=== PATIENT | male | born 2005 | race Two or more races ===

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

== ENCOUNTER 2024-02-09 09:32 | Emergency (ER) | payer SELFPAY ==
[2024-02-09 09:34] VITALS: BP 142/79; PULSE 92; RESP 16; TEMP 36.8; O2SAT 98; BMI 32.9
--- NOTE | 2024-02-09 10:11 | ED_ITS ---
HPI - Male Genitourinary General Chief complaint: Urogenital-Male Stated complaint: Needs to Get Checked Out Below Time Seen by Provider: 02/09/24 09:38 Source: patient Mode of arrival: ambulatory Limitations: no limitations History of Present Illness ED Provider: Татьяна Richmond APRN HPI Narrative: 18-year-old male with no known medical history presents the ER seeking STD testing. Patient reports that he has a new female sexual partner. They were having intercourse last night when he is concerned that the condom may have, after intercourse. He has no physical symptoms. He is here for STD testing. Related Data Allergies Allergy/AdvReac Type Severity Reaction Status Date / Time No Known Allergies Allergy Verified 02/09/24 09:36 Review of Systems Review of Systems: Yes all other systems are reviewed and are negative Constitutional: Constitutional: Reports no additional constitutional complaints, Denies body ache(s), Denies chills, Denies fever(s), Denies headache(s) and Denies weakness Eyes: Eyes: Reports no additional eye complaints and Denies change in vision ENT: Reports system reviewed and no additional complaints, except as documented, Denies dizziness, Denies headache(s), Denies nasal congestion, Denies nasal discharge and Denies neck pain Cardiovascular: Cardiovascular: Reports no additional cardiovascular complaints, Denies chest pain, Denies leg edema and Denies dyspnea Respiratory: Respiratory: Reports no additional respiratory complaints, Denies cough and Denies dyspnea Gastrointestinal: Gastrointestinal: Reports no additional gastrointestinal complaints, Denies abdominal pain, Denies diarrhea, Denies nausea and Denies vomiting Genitourinary: Genitourinary: Denies penile discharge, Denies testicular mass, Denies testicular pain, Denies urinary frequency, Denies urinary hesitancy, Denies urinary incontinence and Denies urinary urgency Musculoskeletal: Musculoskeletal: Reports no additional musculoskeletal complaints, Denies back pain, Denies arthralgias, Denies joint swelling, Denies neck pain, Denies numbness and Denies tingling Integumentary/Breasts: Skin/Breast: Reports system reviewed and no additional complaints, except as docu and Denies rash Neurologic: Reports system reviewed and no additional complaints, except as documented, Denies Abnormal speech present, Denies dizziness, Denies headache(s), Denies numbness, Denies tingling and Denies weakness PMFSH Social History Social History Alcohol intake: never Advance Directives: No Advance Directives Information Provided: No Physical Exam Vital Signs: Vital Signs: Last Vital Signs Temp 98.2 F 02/09/24 09:34 Pulse 92 02/09/24 09:34 Resp 16 02/09/24 09:34 BP 142/79 H 02/09/24 09:34 Pulse Ox 98 02/09/24 09:34 O2 Del Method Room Air 02/09/24 09:34 BMI result Body Mass Index 32.9 Const: General: cooperative, healthy appearing, comfortable and no acute distress Orientation/consciousness: patient oriented x3 Limitations: no limitations HEENT: Head: Yes normal to inspection Ears: hearing grossly normal bilaterally General nose exam: Normal external nose present Face and sinus: Yes normal facial exam Mouth: Normal oral and palatal mucosa present Throat: Yes posterior oropharynx normal Eyes: General: appearance normal, both eyes and all related structures Pupils: Equal, round and reactive pupils present Neck: Neck: Yes normal visual inspection Chest: Chest palpation & inspection: normal inspection of the chest Resp: Effort & Inspection: normal respiratory effort Auscultation: clear to auscultation bilaterally Cardio: Rate: regular rate Rhythm: regular rhythm Peripheral pulses: Peripheral pulses 2+ throughout GI: Inspection: Yes normal to inspection Palpation (GI): Soft to palpation and nontender Auscultation: normal bowel sounds : Other: Deferred exam Back/Spine/Pelvis: Thoracic/Lumbar Spine: thoracic and lumbar spine normal to inspection Skin: General skin exam: no rashes or lesions noted Neuro: General: patient oriented x3, no focal motor deficits and normal sensation to monofilament Cranial nerves: Yes Equal, round and reactive pupils present Cognition (Neuro): normal cognition Speech: No Abnormal speech present Gait exam (Neuro): Normal gait present Motor exam (neuro): 5/5 motor strength present throughout Extrem: General: Yes normal to inspection Medical Decision Making Medical Decision Making MDM Narrative: 18-year-old male with no known medical history presents the ER seeking STD testing. Patient reports that he has a new female sexual partner. They were having intercourse last night when he is concerned that the condom may have, after intercourse. He has no physical symptoms. He is here for STD testing. The patient deferred the exam. His vitals are stable Will send UA, testing for gonorrhea and chlamydia. Patient is asymptomatic and at this time I believe that he can wait for his results. He tells me he is able to return tomorrow if his results are positive for treatment. I do recommend that he get retested in 7 days at [facility] if he has additional concerns. I reviewed worrisome signs and symptoms with him and when to return to the emergency room. Differential Diagnosis Differential Diagnoses: The differential diagnosis associated with the presentation includes STI No testicular pain to suggest epididymitis or testicular torsion Admission/Observation Consideration of admission/observation: Escalation of care including admission/observation considered No testicular pain to suggest epididymitis or testicular torsion requiring advanced imaging, inpatient hospitalization Tests considered The following testing was considered but not selected: No testicular pain to suggest epididymitis or testicular torsion requiring advanced imaging Prescription Management I considered prescription management with: Antibiotic Discharge Plan Discharge Clinical Impression: Normal exam Patient Disposition: Home, Self-Care Instructions: Normal Exam (ED) Additional Instructions: We did send testing for STDs. Will call you if your positive for any STDs and then you will need to return for treatment. Because you recently had sexual intercourse that may have been unprotected if you are initial results are negative I do recommend that you get retested in 7 days at [facility]. Print Language: [place]
[2024-02-09 10:20] VITALS: BP 142/79; PULSE 92; RESP 16; TEMP 36.8; O2SAT 98
[2024-02-09 10:38] LABS: Appearance Urine Clear; Color Urine Yellow; Glucose Urine UA Negative (Negative); Leukocyte Esterase Urine Negative (Negative); Nitrite Urine Negative (Negative); PH 5.5 (5.0-9.0); Urine Blood Negative (Negative); Urine Ketones Negative (Negative); Urine Protein Negative (Neg-Trace)
[2024-02-09 12:44] LABS: CT PCR NOT DETECTED (Not Detect.); NG PCR NOT DETECTED (Not Detect.)
== END 2024-02-09 10:21 | disposition home or self-care (01) ==
PROVIDERS: Emergency Provider Emergency Medicine; PCP Pediatrics
DX: Z20.2 Contact with and (suspected) exposure to infections with a predominantly sexual mode of transmission (principal)
CPT/HCPCS: 81003; 87491; 87591; 99282; 99283

== ENCOUNTER 2024-03-04 17:19 | Emergency (ER) | payer OTHER, SELFPAY ==
[2024-03-04] VITALS (7 sets, daily range): BP systolic 149–190; BP diastolic 91–109; PULSE 136–154; RESP 12–26; TEMP -17.7–0; O2SAT 92–100; BMI 28.1
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
[2024-03-04 17:46] LABS: MANUAL DIFF FLAG NO
[2024-03-04 17:59] LABS: Basophils Absolute Auto 0.1 X10*3/uL (0.0-0.2); Basophils Percent Auto 0.7 % (0-2); Eosinophils Absolute Auto 0.1 X10*3/uL (0.0-0.4); Eosinophils Percent Auto 0.8 % (0-4); Hematocrit 48.2 % (42.0-52.0); Hemoglobin 16.5 g/dl (14.0-18.0); Imm Gran Abs Auto 0.02 X10*3/uL (0.00-0.03); Imm Gran Pct Auto 0.3 % (0.0-0.4); Lymphocytes Absolute Auto 2.3 X10*3/uL (1.2-4.9); Lymphocytes Percent Auto 31.1 % (20-40); Mean Corpuscular HGB Conc 34.2 g/dl (31.0-36.0); Mean Corpuscular Volume 90.6 fL (80.0-98.0); Mean Platelet Volume 10.3 fL (9.4-12.4); Monocytes Absolute Auto 0.5 X10*3/uL (0.1-1.2); Monocytes Percent Auto 6.9 % (2-11); Neutrophils Absolute Auto 4.5 x10*3/uL (2.0-8.3); Neutrophils Percent Auto 60.2 % (45-73); Platelet Count 354 X10*3/uL (160-400); Red Blood Count 5.32 X10*6/uL (4.60-5.80); Red Cell Distribution Width 12.1 % (11.0-16.0); White Blood Count 7.5 X10*3/uL (4.8-10.8)
[2024-03-04 18:10] LABS: Alanine Aminotransferase 42 U/L (0-40); Albumin Level 4.8 g/dL (3.5-5.0); Alkaline Phosphatase 77 U/L (39-117); Anion Gap 19 (12-20); Aspartate Amino Transferase 50 U/L (5-37); Bilirubin Total 0.4 mg/dL (0.0-1.0); Blood Urea Nitrogen 8 mg/dL (9-16); Calcium 9.7 mg/dL (8.4-10.2); Carbon Dioxide 16 mmol/L (22-29); Chloride 109 mmol/L (96-108); Estimated Glomerular Filt Rate > 60; Glucose Random 117 mg/dL (60-115); Potassium 5.6 mmol/L (3.3-5.1); Sodium 138 mmol/L (135-145); Total Protein 9.1 g/dL (6.5-8.0)
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
[2024-03-04] MEDS: Ketamine HCl/NS 50 MG/5 ML SYRINGE IVPUSH (18:45)
[2024-03-04] MEDS: 0.9 % Sodium Chloride 1,000 ML 999 ML IVCONT ×3 (18:47)
== END 2024-03-04 19:42 | disposition short-term general hospital (02) ==
PROVIDERS: Emergency Provider Emergency Medicine
DX: S21.312A Laceration without foreign body of left front wall of thorax with penetration into thoracic cavity, initial encounter (principal); X99.1XXA Assault by knife, initial encounter; R00.0 Tachycardia, unspecified; Y93.9 Activity, unspecified; Y92.9 Unspecified place or not applicable; Y99.9 Unspecified external cause status
CPT/HCPCS: 32556; 36415; 36430; 51798; 71045; 80053; 85025; 86850; 86900; 86901; 86920; 96374; 99285; 99291; P9016

== ENCOUNTER 2025-07-10 21:51 | Emergency (ER) | payer OTHER, SELFPAY ==
[2025-07-10 22:00] VITALS: BP 160/98; PULSE 85; RESP 18; TEMP 36.6; O2SAT 100; BMI 27.6
--- OUTSIDE RECORDS SUMMARY | 2025-07-11 00:17 | XMS_ITS | Encounter Summary ---
Author Organization [facility] Address [address] [place], [place] [id number] Phone Care Team Providers Care Lpn Rn Name Role Phone Anabelle Stevens MD Primary Care Provider Reason for Visit * Reason Onset Date Comments Follow uo Asthma 07/11/2019 Encounter Details Date Type Department Care Team ([facility] Contact Info) Description 07/11/2019 Patient Outreach [facility] [place] [address] [place] [address] Anabelle Stevens MD 150 [place] [address] Follow uo Asthma Social History Tobacco Use Types Packs/Day Years Used Date Smoking Tobacco: Never Smokeless Tobacco: Never Alcohol Use Standard Drinks/Week Comments No 0 (1 standard drink = 0.6 oz pur e alcohol) Hunger/Food Answer Date Recorded No 01/14/2019 Stable Housing Answer Date Recorded 0 01/14/2019 Transportation Concerns Answer Date Rec orded No 01/14/2019 Hazards in Home Answer Date Recorded No 01/14/2019 Financing Utilities Answer Date Recorde d No 01/14/2019 Safety at Home Answer Date Recorded No 01/14/2019 Outside Support Answer Date Recorded No 01/14/2019 Understanding Health Concerns Answer Da te Recorded No 01/14/2019 Financing Health Concerns Answer Date R ecorded No 01/14/2019 Missing School or Work Answer Date Brooks rded No 01/14/2019 Sex and Gender Information Value Date Recorded Sex Assigned at Male 02/13/2024 9:47 AM EDT Legal Sex Male 5:15 PM EDT Gender Identity Male 05/31/2023 11:03 AM EST Sexual Orientation Straight 08/17/2022 2: 10 PM EST documented as of this encounter Plan of Treatment Not on file documented as of this encounter Visit Diagnoses Not on filedocumented in this encounter Care Teams Lpn Rn Relationship Specialty Start Date End Date Anabelle Stevens MD [address] [place] [address] [place] [address] PCP - General 03/02/17 10/21/24 documented as of this encounter
--- OUTSIDE RECORDS SUMMARY | 2025-07-11 00:17 | XMS_ITS | Encounter Summary ---
Author Organization [facility] Address [address] [place], [place] [phone] Phone Care Team Providers Care Transportation Maintenance Operator Name Role Phone Anabelle Stevens MD Primary Care Provider Reason for Visit * Reason Onset Date Comments Met at appointment 05/29/2019 Encounter Details Date Type Department Care Team ([facility] st Contact Info) Description 05/29/2019 Patient Outreach [facility] [place] [address] [place] [address] Anabelle Stevens MD 150 [place] [address] Met at appointment Social History Tobacco Use Types Packs/Day Years [...] PM EST documented as of this encounter Progress Notes * Anabelle Stevens MD - 05/29/2019 7:46 AM EST Thank you. PPP documented in this encounter Plan of Treatment Not on file documented as of this encounter Visit Diagnoses Not on filedocumented in this encounter Care Teams Transportation Maintenance Operator Relationship Specialty Start Date End Date Anabelle Stevens MD [address] [place] [address] [place] [address] PCP - General 03/02/17 10/21/24 documented as of this encounter
--- OUTSIDE RECORDS SUMMARY | 2025-07-11 00:17 | XMS_ITS | Encounter Summary ---
Author Organization [facility] Address [address] [place], [place] [phone] Phone Care Team Providers Care Coat Fitter Name Role Phone Anabelle Stevens MD Primary Care Provider Reason for Visit * Reason Onset Date Comments Question re RX 04/18/2019 Encounter Details Date Type Department Care Team ([facility] st Contact Info) Description 04/18/2019 Patient Outreach [facility] [place] [address] [place] [address] Anabelle Stevens MD 150 [place] [address] Question re RX Social History Tobacco Use Types Packs/Day Years [...] Progress Notes * Anabelle Stevens MD - 04/18/2019 12:44 PM EDT Thanks for following up on this patient, Naz. Please call if you want to talk more about the family. PPP documented in this encounter Plan of Treatment Not on file documented as of this encounter Visit Diagnoses Not on filedocumented in this encounter Care Teams Coat Fitter Relationship Specialty Start Date End Date Anabelle Stevens MD [address] [place] [address] [place] [address] PCP - General 03/02/17 10/21/24 documented as of this encounter
--- OUTSIDE RECORDS SUMMARY | 2025-07-11 00:17 | XMS_ITS | Encounter Summary ---
Author Organization [facility] Address [address] [place], [place] [phone] Phone Care Team Providers Care C Application Developer Name Role Phone Anabelle Stevens MD Primary Care Provider Reason for Visit * Reason Onset Date Comments Home Asthma Visit 04/18/2019 Encounter Details Date Type Department Care Team ([facility] st Contact Info) Description 04/18/2019 Patient Outreach [facility] [place] [address] [place] [address] Anabelle Stevens MD 150 [place] [address] Home Asthma Visit Social History Tobacco Use Types Packs/Day Years [...] on filedocumented in this encounter Care Teams C Application Developer Relationship Specialty Start Date End Date Anabelle Stevens MD 150 [facility] [place] [address] PCP - General 03/02/17 10/21/24 documented as of this encounter
--- OUTSIDE RECORDS SUMMARY | 2025-07-11 00:17 | XMS_ITS | Encounter Summary ---
Author Organization [facility] Address [address] [place], [place] [phone] Phone Care Team Providers Care Pet House Sitter Name Role Phone Anabelle Stevens MD Primary Care Provider Reason for Visit * Reason Onset Date Comments Follow up Asthma 07/29/2019 Encounter Details Date Type Department Care Team ([facility] st Contact Info) Description 07/29/2019 Patient Outreach [facility] [place] [address] [place] [address] Anabelle Stevens MD 150 [place] [address] Follow up Asthma Social History Tobacco Use Types Packs/Day Years Used Date Smoking Tobacco: Never Smokeless Tobacco: Never Alcohol Use Standard Drinks/Week Comments No 0 (1 standard drink = 0.6 oz pur e alcohol) Hunger/Food Answer Date Recorded No 01/14/2019 Stable Housing Answer Date Recorded No 07/24/2019 Transportation Concerns Answer Date Rec orded No [...] Progress Notes * Anabelle Stevens MD - 07/29/2019 10:54 AM EST Thanks. Yes, they may need another visit with more education. I appreciate it! PPP documented in this encounter Plan of Treatment Not on file documented as of this encounter Visit Diagnoses Not on filedocumented in this encounter Care Teams Pet House Sitter Relationship Specialty Start Date End Date Anabelle Stevens MD 150 [facility] [place] [address] PCP - General 03/02/17 10/21/24 documented as of this encounter
--- OUTSIDE RECORDS SUMMARY | 2025-07-11 00:17 | XMS_ITS | Encounter Summary ---
Author Organization [facility] Address [address] [place], [place] [phone] Phone Care Team Providers Care Cook Fast Food Name Role Phone Anabelle Stevens MD Primary Care Provider Reason for Visit * Reason Onset Date Comments Follow up Asthma 08/04/2019 Encounter Details Date Type Department Care Team ([facility] st Contact Info) Description 08/04/2019 Patient Outreach [facility] [place] [address] [place] [address] Anabelle Stevens MD 150 [place] [address] Follow up Asthma Social History Tobacco Use [...] on filedocumented in this encounter Care Teams Cook Fast Food Relationship Specialty Start Date End Date Anabelle Stevens MD 150 [facility] [place] [address] PCP - General 03/02/17 10/21/24 documented as of this encounter
--- OUTSIDE RECORDS SUMMARY | 2025-07-11 00:17 | XMS_ITS | Encounter Summary ---
Author Organization [facility] Address [address] [place], [place] [phone] Phone Care Team Providers Care Brush Holder Inspector Name Role Phone Anabelle Stevens MD Primary Care Provider Reason for Visit * Reason Onset Date Comments Remind Mom of pt's appointment 05/28/2019 Encounter Details Date Type Department Care Team ([facility] Contact Info) Description 05/28/2019 Patient Outreach [place] [facility] [place] [address] [place] [address] Anabelle Stevens MD 150 [place] [address] Remind Mom of pt's appointment Social History Tobacco Use Types Packs/Day [...] Progress Notes * Anabelle Stevens MD - 05/28/2019 6:54 AM EST Thank you.. PPP documented in this encounter Plan of Treatment Not on file documented as of this encounter Visit Diagnoses Not on filedocumented in this encounter Care Teams Brush Holder Inspector Relationship Specialty Start Date End Date Anabelle Stevens MD [address] [place] [address] [place] [address] PCP - General 03/02/17 10/21/24 documented as of this encounter
--- OUTSIDE RECORDS SUMMARY | 2025-07-11 00:17 | XMS_ITS | Encounter Summary ---
Author Organization [facility] Address [address] [place], [place] [phone] Phone Care Team Providers Care Automotive Porter Name Role Phone Anabelle Stevens MD Primary Care Provider Reason for Visit * Reason Onset Date Comments Checking on meds 04/22/2019 Encounter Details Date Type Department Care Team ([facility] Contact Info) Description 04/22/2019 Patient Outreach [facility] [place] [address] [place] [address] Anabelle Stevens MD [address] [place] [address] Checking on meds Social History Tobacco Use Types Packs/Day Years [...] Progress Notes * Anabelle Stevens MD - 04/22/2019 9:00 AM EDT Thanks Naz! documented in this encounter Plan of Treatment Not on file documented as of this encounter Visit Diagnoses Not on filedocumented in this encounter Care Teams Automotive Porter Relationship Specialty Start Date End Date Anabelle Stevens MD [address] [place] [address] [place] [address] PCP - General 03/02/17 10/21/24 documented as of this encounter
--- OUTSIDE RECORDS SUMMARY | 2025-07-11 00:17 | XMS_ITS | Encounter Summary ---
Author Organization [facility] Address [address] [place], [place] [phone] Phone Care Team Providers Care Education Diagnostician Name Role Phone Anabelle Stevens MD Primary Care Provider Reason for Visit * Reason Onset Date Comments Follow up asthma 04/24/2019 Encounter Details Date Type Department Care Team ([facility] st Contact Info) Description 04/24/2019 Patient Outreach [facility] [place] [address] [place] [address] Anabelle Stevens MD [address] [place] [address] Follow up asthma Social History Tobacco Use Types Packs/Day Years [...] Progress Notes * Anabelle Stevens MD - 04/24/2019 11:11 AM EDT Noted. PPP documented in this encounter Plan of Treatment Not on file documented as of this encounter Visit Diagnoses Not on filedocumented in this encounter Care Teams Education Diagnostician Relationship Specialty Start Date End Date Anabelle Stevens MD [address] [place] [address] [place] [address] PCP - General 03/02/17 10/21/24 documented as of this encounter
--- OUTSIDE RECORDS SUMMARY | 2025-07-11 00:17 | XMS_ITS | Encounter Summary ---
Author Organization [facility] Address [address] [place] [phone] Phone Care Team Providers Care Geodetic Engineer Name Role Phone Anabelle Stevens MD Primary Care Provider Encounter Details Date Type Department Care Team (Late st Contact Info) Description 03/08/2017 Conversion Encounter [facility] [place] [address] [place] [address] Social History Tobacco Use Types Packs/Day Years Used Date Smoking Tobacco: Never Assessed Sex and Gender Information Value Date Recorded Sex Assigned at Male 02/13/2024 9:47 AM EDT Legal Sex Male 5:15 PM EDT Gender Identity Male 05/31/2023 11:03 AM EST Sexual Orientation Straight 08/17/2022 2: 10 PM EST documented as of this encounter Plan of Treatment Not on file documented as of this encounter Visit Diagnoses Not on filedocumented in this encounter Care Teams Geodetic Engineer Relationship Specialty Start Date End Date Anabelle Stevens MD [address] [place] [address] PCP - General 03/02/17 10/21/24 documented as of this encounter
--- OUTSIDE RECORDS SUMMARY | 2025-07-11 00:17 | XMS_ITS | Encounter Summary ---
Author Organization [facility] Address [address] [place] [phone] Phone Care Team Providers Care Park Maintainer Name Role Phone Anabelle Stevens MD Primary Care Provider [phone] Encounter Details Date Type Department Care Team (Late st Contact Info) Description 09/11/2012 Documentation EM Family [facility] [address] [place] [address] Family Medicine, Physician [address] [place], [place] [phone] Social History Tobacco Use Types Packs/Day Years [...] on filedocumented in this encounter Care Teams Park Maintainer Relationship Specialty Start Date End Date Anabelle Stevens MD [address] [place] [address] [place] [address] PCP - General 03/02/17 10/21/24 documented as of this encounter
--- OUTSIDE RECORDS SUMMARY | 2025-07-11 00:18 | XMS_ITS | Encounter Summary ---
Author Organization [facility] Address [address] [place], [place] [id number] Phone Care Team Providers Care Senior Maintenance Technician Name Role Phone Anabelle Stevens MD Primary Care Provider Reason for Visit * Reason Onset Date Comments Reschedule asthma visit 01/27/2019 Encounter Details Date Type Department Care Team ([facility] st Contact Info) Description 01/27/2019 Patient Outreach [facility] [place] [address] [place] [address] Anabelle Stevens MD 150 [place] [address] Reschedule asthma visit Social History Tobacco Use Types Packs/Day Years [...] Progress Notes * Anabelle Stevens MD - 01/27/2019 2:58 PM EDT Noted. PPP documented in this encounter Plan of Treatment Not on file documented as of this encounter Visit Diagnoses Not on filedocumented in this encounter Care Teams Senior Maintenance Technician Relationship Specialty Start Date End Date Anabelle Stevens MD [address] [place] [address] [place]on [address] PCP - General 03/02/17 10/21/24 documented as of this encounter
--- OUTSIDE RECORDS SUMMARY | 2025-07-11 00:18 | XMS_ITS | Encounter Summary ---
Author Organization [facility] Address [address] [place], [place] [phone] Phone Care Team Providers Care Thimble Press Operator Name Role Phone Anabelle Stevens MD Primary Care Provider Reason for Visit * Reason Onset Date Comments asthma home visit 03/26/2019 Encounter Details Date Type Department Care Team ([facility] st Contact Info) Description 03/26/2019 Patient Outreach [facility] [place] [address] [place] [address] Anabelle Stevens MD 150 [place] [address] asthma home visit Social History Tobacco Use Types Packs/Day [...] on filedocumented in this encounter Care Teams Thimble Press Operator Relationship Specialty Start Date End Date Anabelle Stevens MD 150 [facility] [place] [address] PCP - General 03/02/17 10/21/24 documented as of this encounter
--- OUTSIDE RECORDS SUMMARY | 2025-07-11 00:18 | XMS_ITS | Encounter Summary ---
Author Organization [facility] Address [address] [place], [place] [phone] Phone Care Team Providers Care Python Engineer Name Role Phone Anabelle Stevens MD Primary Care Provider Reason for Visit * Reason Onset Date Comments Confirm Asthma home visit today 02/19/2019 Encounter Details Date Type Department Care Team ([facility] Contact Info) Description 02/19/2019 Patient Outreach [facility] [place] 150 [place] [address] Anabelle Stevens MD 150 [place] [address] Confirm Asthma home visit today Social History Tobacco Use Types Packs/Day Years [...] on filedocumented in this encounter Care Teams Python Engineer Relationship Specialty Start Date End Date Anabelle Stevens MD [address] [place] [address] [place] Huston [address] PCP - General 03/02/17 10/21/24 documented as of this encounter
--- OUTSIDE RECORDS SUMMARY | 2025-07-11 00:18 | XMS_ITS | Encounter Summary ---
Author Organization [facility] Address [address] [place] [address] Phone Care Team Providers Care Home Care Liaison Name Role Phone Anabelle Stevens MD Primary Care Provider [phone]- [phone] Reason for Visit * Reason Comments Med Change Request Encounter Details Date Type Department Care Team ([facility] st Contact Info) Description 06/05/2022 Refill [facility] [place] 150 [place] [address] Anabelle Stevens MD 150 [place] [address] Mild persistent asthma without complication Social History Tobacco Use Types Packs/Day Years Used Date Smoking Tobacco: Never Smokeless Tobacco: Never Alcohol Use Standard Drinks/Week Comments No 0 (1 standard drink = 0.6 oz pur e alcohol) Hunger/Food Answer Date Recorded In the last 12 months, did y ou or your family ever eat less than you felt you should because there wasn't enough money for food? No 02/14/2021 Stable Housing Answer Date Recorded Are you worried that in the next 2 months you may not have stable housing? No 02/14/2021 Transportation Concerns Answer Date Rec orded In the last 12 months, have you or your family ever had to go without healthcare because you didn't have a way to get there? No 02/14/2021 Hazards in Home Answer Date Recorded Think about the place you li ve. Do you have problems with any of the following? Pests (mice or roaches), mold, no/not working smoke detectors, water leaks, no window guards. No 2020 Financing Utilities Answer Date Recorde d In the last 12 months, has t he electric, gas, oil, or water company threatened to shut off your services in your home? No 02/14/2021 Safety at Home Answer Date Recorded Are you or your family worried about feeling saf e in your home? No 02/14/2021 Outside Support Answer Date Recorded Do you feel that you need mo re support from other people or programs to help you care for yourself or your family? No 02/14/2021 Understanding Health Concerns Answer Da te Recorded Do you need help understandi ng your or your child's healthcare needs (diagnosis, medications, plan, etc.)? No 02/14/2021 Financing Health Concerns Answer Date R ecorded In the last 12 months, was t here a time when your child needed to see a doctor or get medications or supplies but could not because of cost? No 02/14/2021 Missing School or Work Answer Date Brooks rded Did you or your child miss s chool or work because of a health problem that could have been avoided? No 02/14/2021 Sex and Gender Information Value Date Recorded Sex Assigned at Male 02/13/2024 9:47 AM EDT Legal Sex Male 5:15 PM EDT Gender Identity Male 05/31/2023 11:03 AM EST Sexual Orientation Straight 08/17/2022 2: 10 PM EST documented as of this encounter Miscellaneous Notes * Telephone Encounter - Twin Brice LPN - 06/05/2022 3:56 PM EST Correct script t'd up with KRISTA clicked. documented in this encounter Plan of Treatment Not on file documented as of this encounter Visit Diagnoses Diagnosis Mild persistent asthma without complication documented in this encounter Care Teams Home Care Liaison Relationship Specialty Start Date End Date Anabelle Stevens MD 150 [facility] [place] [address] PCP - General 03/02/17 10/21/24 documented as of this encounter
--- OUTSIDE RECORDS SUMMARY | 2025-07-11 00:18 | XMS_ITS | Encounter Summary ---
Author Organization [facility] Address [address] [place] [address] Phone Care Team Providers Care Fiction And Nonfiction Prose Writer Name Role Phone Anabelle Stevens MD Primary Care Provider [phone]- [phone] Reason for Visit * Reason Comments Med Refill Encounter Details Date Type Department Care Team (Late st Contact Info) Description 05/08/2018 Refill [facility] - [address] [address] Jordan Joseph MD Mild persistent asthma without complication Social History Tobacco Use Types Packs/Day Years Used Date Smoking Tobacco: Never Smokeless Tobacco: Never Alcohol Use Standard Drinks/Week Comments No 0 (1 standard drink = 0.6 oz pur e alcohol) Sex and Gender Information Value Date Recorded [...] complication documented in this encounter Care Teams Fiction And Nonfiction Prose Writer Relationship Specialty Start Date End Date Anabelle Stevens MD [address] [place] [address] PCP - General 03/02/17 10/21/24 documented as of this encounter
--- OUTSIDE RECORDS SUMMARY | 2025-07-11 00:18 | XMS_ITS | Encounter Summary ---
Author Organization [facility] Address [address] [place] [address] Phone Care Team Providers Care Ore Charger Name Role Phone Anabelle Stevens MD Primary Care Provider [phone]- [phone] Reason for Visit * Reason Comments Med Change Request Encounter Details Date Type Department Care Team ([facility] st Contact Info) Description 06/05/2022 Refill [facility] [place] 150 [place] [address] Anabelle Stevens MD 150 [place] [address] Mild persistent asthma without complication Social History [...] encounter Miscellaneous Notes * Telephone Encounter - Parisa Luis LPN - 06/05/2022 5:02 PM EST Pharm refill request for Flovent KRISTA documented in this encounter Plan of Treatment Not on file documented as of this encounter Visit Diagnoses Diagnosis Mild persistent asthma without complication documented in this encounter Care Teams Ore Charger Relationship Specialty Start Date End Date Anabelle Stevens MD 150 [facility] JOE[place] [address] PCP - General 03/02/17 10/21/24 documented as of this encounter
--- OUTSIDE RECORDS SUMMARY | 2025-07-11 00:18 | XMS_ITS | Encounter Summary ---
Author Organization [facility] Address [address] [place] [address] Phone Care Team Providers Care Clinical Trials Data Coordinator Name Role Phone Anabelle Stevens MD Primary Care Provider Encounter Details Date Type Department Care Team (Late st Contact Info) Description 05/17/2010 Documentation [facility] [address] [place] [address] Family Medicine, Physician [address] [place], [place] [phone] Social History Tobacco Use Types Packs/Day Years [...] on filedocumented in this encounter Care Teams Clinical Trials Data Coordinator Relationship Specialty Start Date End Date Anabelle Stevens MD [address] [place] [address] [place] [address] PCP - General 03/02/17 10/21/24 documented as of this encounter
--- OUTSIDE RECORDS SUMMARY | 2025-07-11 00:18 | XMS_ITS | Encounter Summary ---
Author Organization [facility] Address [address] [place], [place] [address] Phone Care Team Providers Care Industrial Pharmacist Name Role Phone Anabelle Stevens MD Primary Care Provider Reason for Visit * Reason Onset Date Comments Schedule home asthma visit 02/17/2019 Encounter Details Date Type Department Care Team ([facility] st Contact Info) Description 02/17/2019 Patient Outreach [facility] [place] 150 [place] [address] Anabelle Stevens MD 150 [place] [address] Schedule home asthma visit Social History Tobacco Use Types [...] Progress Notes * Anabelle Stevens MD - 02/17/2019 12:13 PM EDT Noted. Vasu Olson to talk to mom in office today. PPP documented in this encounter Plan of Treatment Not on file documented as of this encounter Visit Diagnoses Not on filedocumented in this encounter Care Teams Industrial Pharmacist Relationship Specialty Start Date End Date Anabelle Stevens MD 150 [facility] [place] [address] PCP - General 03/02/17 10/21/24 documented as of this encounter
--- OUTSIDE RECORDS SUMMARY | 2025-07-11 00:18 | XMS_ITS | Encounter Summary ---
Author Organization [facility] Address [address] [place] [address] Phone Care Team Providers Care Nurse Practitioner Physician Assistant Name Role Phone Anabelle Stevens MD Primary Care Provider Encounter Details Date Type Department Care Team (Late st Contact Info) Description 11/07/2010 Documentation [facility] [address] [place] [address] Family Medicine, Physician [address] [place], [place] [phone] Social History Tobacco Use Types Packs/Day Years [...] on filedocumented in this encounter Care Teams Nurse Practitioner Physician Assistant Relationship Specialty Start Date End Date Anabelle Stevens MD [address] [place] [address] [place] [address] PCP - General 03/02/17 10/21/24 documented as of this encounter
--- OUTSIDE RECORDS SUMMARY | 2025-07-11 00:18 | XMS_ITS | Encounter Summary ---
Author Organization [facility] Address [address] [place], [place] [phone] Phone Care Team Providers Care Concrete Inspector Name Role Phone Anabelle Stevens MD Primary Care Provider Reason for Visit * Reason Onset Date Comments Confirm home asthma visit 01/21/2019 Encounter Details Date Type Department Care Team ([facility] st Contact Info) Description 01/21/2019 Patient Outreach [facility] [place] 150 [place] [address] Anabelle Stevens MD 150 [place] [address] Confirm home asthma visit Social History Tobacco Use [...] Progress Notes * Anabelle Stevens MD - 01/21/2019 11:59 PM EDT Noted. Thanks. PPP documented in this encounter Plan of Treatment Not on file documented as of this encounter Visit Diagnoses Not on filedocumented in this encounter Care Teams Concrete Inspector Relationship Specialty Start Date End Date Anabelle Stevens MD [address] [place] [address] [place]ust[place] [address] PCP - General 03/02/17 10/21/24 documented as of this encounter
--- OUTSIDE RECORDS SUMMARY | 2025-07-11 00:18 | XMS_ITS | Encounter Summary ---
Author Organization [facility] Address [address] [place], [place] [phone] Phone Care Team Providers Care Vending Route Driver Name Role Phone Anabelle Stevens MD Primary Care Provider Reason for Visit * Reason Onset Date Comments Schedule home asthma visit 02/04/2019 Encounter Details Date Type Department Care Team ([facility] st Contact Info) Description 02/04/2019 Patient Outreach [facility] [place] 150 [place] [address] Anabelle Stevens MD 150 [place] [address] Schedule home asthma visit Social History Tobacco [...] on filedocumented in this encounter Care Teams Vending Route Driver Relationship Specialty Start Date End Date Anabelle Stevens MD [address] [place] [address] [place] [address] PCP - General 03/02/17 10/21/24 documented as of this encounter
--- OUTSIDE RECORDS SUMMARY | 2025-07-11 00:18 | XMS_ITS | Encounter Summary ---
Author Organization [facility] Address [address] [place] [address] Phone Care Team Providers Care Southeast Regional Sales Manager Name Role Phone Anabelle Stevens MD Primary Care Provider Encounter Details Date Type Department Care Team (Late st Contact Info) Description 05/23/2012 Documentation [facility] [address] [place] [address] Family Medicine, Physician [address] [place], [place] [phone] Social History Tobacco Use Types Packs/Day Years [...] on filedocumented in this encounter Care Teams Southeast Regional Sales Manager Relationship Specialty Start Date End Date Anabelle Stevens MD [address] [place] [address] [place] [address] PCP - General 03/02/17 10/21/24 documented as of this encounter
--- OUTSIDE RECORDS SUMMARY | 2025-07-11 00:18 | XMS_ITS | Encounter Summary ---
Author Organization [facility] Address [address] [place], [place] [phone] Phone Care Team Providers Care Manager Law Name Role Phone Anabelle Stevens MD Primary Care Provider Reason for Visit * Reason Onset Date Comments Confirm home asthma visit 02/11/2019 Encounter Details Date Type Department Care Team ([facility] Contact Info) Description 02/11/2019 Patient Outreach [facility] [place] 150 [place] [address] Anabelle Stevens MD 150 [place] [address] Confirm home asthma visit Social History Tobacco [...] Progress Notes * Anabelle Stevens MD - 02/11/2019 11:59 PM EDT Thanks, Naz. PPP documented in this encounter Plan of Treatment Not on file documented as of this encounter Visit Diagnoses Not on filedocumented in this encounter Care Teams Manager Law Relationship Specialty Start Date End Date Anabelle Stevens MD [address] [place] [address] [place] [address] PCP - General 03/02/17 10/21/24 documented as of this encounter
--- OUTSIDE RECORDS SUMMARY | 2025-07-11 00:18 | XMS_ITS | Encounter Summary ---
Author Organization [facility] Address [address] [place], [place] [phone] Phone Care Team Providers Care Medical Social Consultant Name Role Phone Anabelle Stevens MD Primary Care Provider Reason for Visit * Reason Onset Date Comments Home Asthma Visit 02/19/2019 Encounter Details Date Type Department Care Team ([facility] st Contact Info) Description 02/19/2019 Patient Outreach [facility] [place] 150 [place] [address] Anabelle Stevens MD 150 [place] [address] Home Asthma Visit Social History Tobacco Use [...] Progress Notes * Anabelle Stevens MD - 02/19/2019 11:59 PM EDT Thanks, Naz! PPP documented in this encounter Plan of Treatment Not on file documented as of this encounter Visit Diagnoses Not on filedocumented in this encounter Care Teams Medical Social Consultant Relationship Specialty Start Date End Date Anabelle Stevens MD [address] [place] [address] [place] Hust[place] [address] PCP - General 03/02/17 10/21/24 documented as of this encounter
--- OUTSIDE RECORDS SUMMARY | 2025-07-11 00:18 | XMS_ITS | Encounter Summary ---
Author Organization [facility] Address [address] [place] [address] Phone Care Team Providers Care Military Administrative Technician Name Role Phone Anabelle Stevens MD Primary Care Provider Encounter Details Date Type Department Care Team (Late st Contact Info) Description 06/02/2010 Documentation [facility] [address] [place] [address] Family Medicine, Physician [address] [place], [place] [phone] Social History Tobacco Use Types Packs/Day Years [...] on filedocumented in this encounter Care Teams Military Administrative Technician Relationship Specialty Start Date End Date Anabelle Stevens MD [address] [place] [address] [place] [address] PCP - General 03/02/17 10/21/24 documented as of this encounter
--- OUTSIDE RECORDS SUMMARY | 2025-07-11 00:18 | XMS_ITS | Clinical Summary ---
Author Organization [facility] Address [address] [place] [phone] Phone Care Team Providers Care Risk Mgr Name Role Phone Unavailable Primary Care Provider Unavailabl e Allergies Active Allergy Reactions Criticality Noted Date Comments Bee Venom 06/16/2024 Medications ibuprofen 200 MG capsuleIndicatio ns:Muscle strain of chest wall, initial encounter Take 2 capsules (400 mg total) by mouth every 6 (six) hours as needed for pain or fever (For fever or pain). 100 capsule 7 Active Spacer/Aero-Hold ing Chambers (OptiChamber Bev) miscIndications: Mild persistent asthma without complication Use with MDI as instructed 1 each 1 3 Active Spacer/Aero-Hold ing Chambers (OptiChamber Bev) miscIndications: Mild intermittent asthma with acute exacerbation Use with MDI as instructed 1 each 1 3 Active hydrOXYzine 25 MG tabletIndication s:Atopic dermatitis, unspecified type Take 1-2 tabs at night for itching 30 tablet 1 4 Active Additional Information Patient not taking.Reported on 07/24/2024 triamcinolone 0.1 % creamIndications :Atopic dermatitis, unspecified type Apply topically 2 (two) times a day as needed for rash. Mix entire tube with 16 ounce container of Cerave Cream 80 g 1 4 Active Additional Information Patient not taking.Reported on 07/24/2024 fluticasone 50 MCG/ACT nasal sprayIndications :Nasal congestion Administer 1 spray into each nostril daily. 1 mL 5 4 Active Spacer/Aero-Hold Chamber Mask miscIndications: Mild persistent asthma with (acute) exacerbation Use as directed 1 each 4 Active Mometasone Furoate (Asmanex HFA) 100 MCG/ACT aerosolIndicatio ns:Mild persistent asthma, unspecified whether complicated Inhale 2 puffs 2 (two) times a day. 13 g 5 5 Active albuterol HFA 108 (90 Base) MCG/ACT inhalerIndicatio ns:Mild persistent asthma with (acute) exacerbation Inhale 2 puffs every 4 (four) hours as needed for wheezing or shortness of breath. 1 Units 5 08/19/19 26 Active Active Problems Problem Noted Date Diagnosed Date Mild intermittent asthma without complication Overview (01/26/2020): QVAR 2 puffs BID - compliance seems to have improved - encouraged to continue Assessment & Plan (02/13/2024 9:46 AM EDT): Inhaler just refilled yesterday. Assessment & Plan (04/15/2019 6:54 PM EDT): Suspect poor compliance. School nurse is reporting frequent albuterol use for gym every day.. No cough at night. + cough with running. Takes qvar BID, 2 puffs. Denies allergy symptoms. Last fill for Qvar was 01/14/19 Sent new Rx for Qvar and albuterol today. I asked mom to bring in BOTH pumps to 1 month follow up to assess for compliance.. Resolved Problems Problem Noted Date Diagnosed Date Resolved Date Counseling and coordination of care 04/16/2019 12/14/2022 Encounters Date Type Department Care Team Description 05/14/2025 Refill [facility] [address] [address] Anabelle Stevens MD Mild persistent asthma with (acute) exacerbation from Last 3 Months Immunizations Immunization Administration Dates Next Due DTaP 5 10/21/2007, 5,03/30/2004,01/21,2003 H1N1 10/05/2009 HPV Vaccine 9 Valent 03/03/2016,04/29/2015,01/13 Hep A, ped/adol 01/13/2015,01/12/2014 Hep B, ped/adol 07/05/2004,03/30/2004,2003 Hib (HbOC) 12/26/2004, 4,01/22/2004,11/22 IPV 10/21/2007, 4,01/22/2004,11/22 Influenza Split 05/07/2012,03/10/2010 Influenza, injectable, quadrivalent 05/05/2016,1 Influenza, injectable, quadr ivalent, preservative free 08/28/2023,08/17/2022,06/28/2021,07/07,05/28/2019,05/16/2017,04/07/2014 ,10/23/2013 Influenza, injectable, trivalent 009,05/11/2008,07/03/2006,06/21,06/08/2004 MMR 2004 MMRV 10/21/2007 Meningococcal B Trumenba 08/17/2022,02/14/2021 Meningococcal Conj (Menactra) MCV4P 01/25/2020,0 01/13/2015 Pneumococcal Conjugate 12/26/2004,2003,01/22/2004,11/22 Tdap 01/13/2015 Varicella 2004 Family History Medical History Relation Name Comments No Known Problems Father No Known Problems Mother Jessi Maurer Relation Name Status Comments Father Alive Father: Alive a nd well Half-Brother Kodak Quintanilla, Alive Half brother (M): Alive and well Half-Sister Fang Maurer Alive Mother Jessi Maurer Alive Mother: Migrain es Other Family history of Asthma Social History Tobacco Use Types Packs/Day Years Used Date Smoking Tobacco: Never Smokeless Tobacco: Never Tobacco Cessation:Counseling Given: Yes Alcohol Use Standard Drinks/Week Comments No 0 (1 standard drink = 0.6 oz pur e alcohol) Hunger/Food Answer Date Recorded In the last 12 months, did y ou or your family ever eat less than you felt you should because there wasn't enough money for food? No 02/13/2024 Stable Housing Answer Date Recorded Are you worried that in the next 2 months you may not have stable housing? No 02/13/2024 Transportation Concerns Answer Date Rec orded In the last 12 months, have you or your family ever had to go without healthcare because you didn't have a way to get there? No 02/13/2024 Hazards in Home Answer Date Recorded Think about the place you li ve. Do you have problems with any of the following? Pests (mice or roaches), mold, no/not working smoke detectors, water leaks, no window guards. No 2023 Financing Utilities Answer Date Recorde d In the last 12 months, has t he electric, gas, oil, or water company threatened to shut off your services in your home? No 02/13/2024 Safety at Home Answer Date Recorded Are you or your family worried about feeling saf e in your home? No 02/13/2024 Outside Support Answer Date Recorded Do you feel that you need mo re support from other people or programs to help you care for yourself or your family? No 02/13/2024 Understanding Health Concerns Answer Da te Recorded Do you need help understandi ng your or your child's healthcare needs (diagnosis, medications, plan, etc.)? No 02/13/2024 Financing Health Concerns Answer Date R ecorded In the last 12 months, was t here a time when your child needed to see a doctor or get medications or supplies but could not because of cost? No 02/13/2024 Missing School or Work Answer Date Brooks rded Did you or your child miss s chool or work because of a health problem that could have been avoided? No 02/13/2024 Child Education Answer Date Recorded Do you have concerns about y our/your child's learning or behavior in school, preschool, or daycare? No 02/13/2024 Sex and Gender Information Value Date Recorded Sex Assigned at Male 02/13/2024 9:47 AM EDT Legal Sex Male 5:15 PM EDT Gender Identity Male 05/31/2023 11:03 AM EST Sexual Orientation Straight 08/17/2022 2: 10 PM EST Last Filed Vital Signs Vital Sign Reading Time Taken Comments Blood Pressure 143/82 07/24/2024 3:58 PM EST Pulse 86 07/24/2024 3:58 PM EST Temperature 36.4 C (97.5 F) 07/24/2024 3:58 PM EST Respiratory Rate 20 08/28/2023 3:01 PM EST Oxygen Saturation 97% 06/16/2024 2:51 PM EST Inhaled Oxygen Concentration - - Weight 93.4 kg (205 lb 12.8 oz) 07/24/2024 3:58 PM EST Height 168.5 cm (5' 6.34 ) 02/13/2024 9:24 AM ED T Body Mass Index 32.88 02/13/2024 9:24 AM EDT Plan of Treatment Health Maintenance Due Date Last Done Comments DTaP,Tdap,and Td Vaccines (7 - Td or Tdap) 01/13/2025 01/13/2015, 10/21/2007, 06/21/2005, Additional history exists Influenza Vaccines (#1) 2025 08/28/19, 08/17/2022, 06/28/2021, Additional history exists COVID-19 Vaccine (1 - 2024-2 6 season) 2025 Hepatitis B Vaccines Completed 07/05/2004, 03/30/2004, 2003 HIB Vaccines Completed 12/26/2004, 02/2004, 01/22/2004, Additional history exists Pneumococcal Vaccine Completed 12/26/2004, 03/30/2004, 01/22/2004, Additional history exists IPV Vaccines Completed 10/21/2007, 06/22, 01/22/2004, Additional history exists MMR Vaccines Completed 10/21/2007, 2004 Varicella Vaccines Completed 10/21/2007, 2004 Hepatitis A Vaccines Completed 01/13/2015, 01/13/20 14 HPV Vaccines Completed 03/03/2016, 02/2015, 01/13/2015 Meningococcal Vaccine Completed 01/25/2020, 015 Men B Vaccine Completed 08/17/2022, 02/14/2021
== END 2025-07-11 00:16 | disposition left against medical advice (07) ==
PROVIDERS: Emergency Provider Emergency Medicine
DX: M54.9 Dorsalgia, unspecified (principal); R10.9 Unspecified abdominal pain; Z53.21 Procedure and treatment not carried out due to patient leaving prior to being seen by health care provider
CPT/HCPCS: 99281

== ENCOUNTER 2025-07-11 14:36 | Emergency (ER) | payer OTHER, SELFPAY ==
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
[2025-07-11 15:44] VITALS: BP 138/86; PULSE 77; RESP 18; TEMP 36.6; O2SAT 100
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
--- OUTSIDE RECORDS SUMMARY | 2025-07-11 17:13 | XMS_ITS | Encounter Summary ---
Author Organization [facility] Address [address] [place], [place] [phone] Phone Care Team Providers Care Associate Professor Of Geography Name Role Phone Anabelle Stevens MD Primary Care Provider Reason for Visit * Reason Onset Date Comments Home Asthma Visit 04/18/2019 Encounter Details Date Type Department Care Team ([facility] st Contact Info) Description 04/18/2019 Patient Outreach [facility] [address] [place] [address] Anabelle Stevens MD [address] [place] [address] Home Asthma Visit Social History Tobacco Use [...] on filedocumented in this encounter Care Teams Associate Professor Of Geography Relationship Specialty Start Date End Date Anabelle Stevens MD 150 [facility] [place] [address] PCP - General 03/02/17 10/21/24 documented as of this encounter
--- OUTSIDE RECORDS SUMMARY | 2025-07-11 17:13 | XMS_ITS | Encounter Summary ---
Author Organization [facility] Address [address] [place] [address] Phone Care Team Providers Care Pellet Preparation Operator Name Role Phone Anabelle Stevens MD Primary Care Provider Encounter Details Date Type Department Care Team (Late st Contact Info) Description 09/11/2012 Documentation [facility] [address] [place] [address] Family Medicine, Physician [address] [place], [place] [phone] Social History Tobacco Use Types Packs/Day Years [...] on filedocumented in this encounter Care Teams Pellet Preparation Operator Relationship Specialty Start Date End Date Anabelle Stevens MD [address] [place] [address] [place] [address] PCP - General 03/02/17 10/21/24 documented as of this encounter
--- OUTSIDE RECORDS SUMMARY | 2025-07-11 17:13 | XMS_ITS | Encounter Summary ---
Author Organization [facility] Address [address] [place], [place] [phone] Phone Care Team Providers Care Clinical Rn Manager Name Role Phone Anabelle Stevens MD Primary Care Provider Reason for Visit * Reason Onset Date Comments Question re RX 04/18/2019 Encounter Details Date Type Department Care Team ([facility] st Contact Info) Description 04/18/2019 Patient Outreach [facility] [place] [address] [place] [address] Anabelle Stevens MD [address] [place] [address] Question re RX Social History Tobacco Use [...] filedocumented in this encounter Care Teams Clinical Rn Manager Relationship Specialty Start Date End Date Anabelle Stevens MD [address] [place] [address] [place] [address] PCP - General 03/02/17 10/21/24 documented as of this encounter
--- OUTSIDE RECORDS SUMMARY | 2025-07-11 17:14 | XMS_ITS | Encounter Summary ---
Author Organization [facility] Address [address] [place], [place] [phone] Phone Care Team Providers Care Cooker Soda Name Role Phone Anabelle Stevens MD Primary Care Provider Reason for Visit * Reason Onset Date Comments Checking on meds 04/22/2019 Encounter Details Date Type Department Care Team ([facility] Contact Info) Description 04/22/2019 Patient Outreach [facility] [place] [address] [place] [address] Anabelle Stevens MD [address] [place] [address] Checking on meds Social History Tobacco Use [...] on filedocumented in this encounter Care Teams Cooker Soda Relationship Specialty Start Date End Date Anabelle Stevens MD [address] [place] [address] [place] [address] PCP - General 03/02/17 10/21/24 documented as of this encounter
--- OUTSIDE RECORDS SUMMARY | 2025-07-11 17:14 | XMS_ITS | Encounter Summary ---
Author Organization [facility] Address [address] [place] [address] Phone Care Team Providers Care Job Lithographer Name Role Phone Anabelle Stevens MD Primary Care Provider Encounter Details Date Type Department Care Team (Late st Contact Info) Description 05/17/2010 Documentation [facility] [address] [place] [address] Family Medicine, Physician [address] [place], [place] [phone] Social History Tobacco Use Types Packs/Day Years [...] on filedocumented in this encounter Care Teams Job Lithographer Relationship Specialty Start Date End Date Anabelle Stevens MD [address] [place] [address] [place] [address] PCP - General 03/02/17 10/21/24 documented as of this encounter
--- OUTSIDE RECORDS SUMMARY | 2025-07-11 17:14 | XMS_ITS | Encounter Summary ---
Author Organization [facility] Address [address] [place], [place] [phone] Phone Care Team Providers Care Chef Instructor Name Role Phone Anabelle Stevens MD Primary Care Provider Reason for Visit * Reason Onset Date Comments Reschedule asthma visit 01/27/2019 Encounter Details Date Type Department Care Team ([facility] st Contact Info) Description 01/27/2019 Patient Outreach [facility] [place] [address] [place] [address] Anabelle Stevens MD 150 [place] [address] Reschedule asthma visit Social History Tobacco Use [...] on filedocumented in this encounter Care Teams Chef Instructor Relationship Specialty Start Date End Date Aanbelle Stevens MD [address] [place] [address] [place] [address] PCP - General 03/02/17 10/21/24 documented as of this encounter
--- OUTSIDE RECORDS SUMMARY | 2025-07-11 17:14 | XMS_ITS | Encounter Summary ---
Author Organization [facility] Address [address] [place], [place] [phone] Phone Care Team Providers Care Patrol Supervisor Name Role Phone Anabelle Stevens MD Primary Care Provider Reason for Visit * Reason Onset Date Comments Home Asthma Visit 02/19/2019 Encounter Details Date Type Department Care Team ([facility] st Contact Info) Description 02/19/2019 Patient Outreach [facility] [place] [address] [place] [address] Anabelle Stevens MD 150 [place] [address] Home Asthma Visit Social History Tobacco Use [...] on filedocumented in this encounter Care Teams Patrol Supervisor Relationship Specialty Start Date End Date Anabelle Stevens MD [address] [place] [address] [place] [address] PCP - General 03/02/17 10/21/24 documented as of this encounter
--- OUTSIDE RECORDS SUMMARY | 2025-07-11 17:14 | XMS_ITS | Encounter Summary ---
Author Organization [facility] Address [address] [place], [place] [phone] Phone Care Team Providers Care Computer Aide Name Role Phone Anabelle Stevens MD Primary Care Provider Reason for Visit * Reason Onset Date Comments Follow up Asthma 07/29/2019 Encounter Details Date Type Department Care Team ([facility] st Contact Info) Description 07/29/2019 Patient Outreach [facility] [place] [address] [place] [address] Anabelle Stevens MD 150 [place] [address] Follow up Asthma Social History Tobacco Use [...] on filedocumented in this encounter Care Teams Computer Aide Relationship Specialty Start Date End Date Anabelle Stevens MD 150 [facility] [place] [address] PCP - General 03/02/17 10/21/24 documented as of this encounter
--- OUTSIDE RECORDS SUMMARY | 2025-07-11 17:14 | XMS_ITS | Encounter Summary ---
Author Organization [facility] Address [address] [place], [place] [id number] Phone Care Team Providers Care Bank Manager Name Role Phone Anabelle Stevens MD Primary Care Provider Reason for Visit * Reason Onset Date Comments asthma home visit 03/26/2019 Encounter Details Date Type Department Care Team ([facility] st Contact Info) Description 03/26/2019 Patient Outreach [facility] [place] 150 [place] [address] Anabelle Stevens MD 150 [place] [address] asthma home visit Social History Tobacco Use [...] on filedocumented in this encounter Care Teams Bank Manager Relationship Specialty Start Date End Date Anabelle Stevens MD 150 [facility] [place] [address] PCP - General 03/02/17 10/21/24 documented as of this encounter
--- OUTSIDE RECORDS SUMMARY | 2025-07-11 17:14 | XMS_ITS | Encounter Summary ---
Author Organization [facility] Address [address] [place], [place] [phone] Phone Care Team Providers Care Mover Helper Name Role Phone Anabelle Stevens MD Primary Care Provider Reason for Visit * Reason Onset Date Comments Confirm home asthma visit 02/11/2019 Encounter Details Date Type Department Care Team ([facility] Contact Info) Description 02/11/2019 Patient Outreach [facility] [place] 150 [place] [address] Anabelle Stevnes MD 150 [place] [address] Confirm home asthma visit Social History Tobacco [...] on filedocumented in this encounter Care Teams Mover Helper Relationship Specialty Start Date End Date Anabelle Stevens MD [address] [place] [address] [place] [address] PCP - General 03/02/17 10/21/24 documented as of this encounter
--- OUTSIDE RECORDS SUMMARY | 2025-07-11 17:14 | XMS_ITS | Encounter Summary ---
Author Organization [facility] Address [address] [place], [place] [phone] Phone Care Team Providers Care Industrial Tractor Driver Name Role Phone Anabelle Stevens MD Primary Care Provider Reason for Visit * Reason Onset Date Comments Confirm Asthma home visit today 02/19/2019 Encounter Details Date Type Department Care Team ([facility] Contact Info) Description 02/19/2019 Patient Outreach [facility] [place] 150 [place] [address] Anabelle Stevens MD 150 [place] [address] Confirm Asthma home visit today Social History [...] filedocumented in this encounter Care Teams Industrial Tractor Driver Relationship Specialty Start Date End Date Anabelle Stevens MD [address] [place] [address] [place] [address] PCP - General 03/02/17 10/21/24 documented as of this encounter
--- OUTSIDE RECORDS SUMMARY | 2025-07-11 17:14 | XMS_ITS | Encounter Summary ---
Author Organization [facility] Address [address] [place] [address] Phone Care Team Providers Care Golf Club Maker Name Role Phone Anabelle Stevens MD Primary Care Provider [phone] Reason for Visit * Reason Comments Med Change Request Encounter Details Date Type Department Care Team ([facility] st Contact Info) Description 06/05/2022 Refill [facility] [place] 150 [place] [address] Anabelle Stevens MD 150 [place] [address] Mild persistent asthma without complication Social History [...] complication documented in this encounter Care Teams Golf Club Maker Relationship Specialty Start Date End Date Anabelle Stevens MD 150 [facility] [place] [address] PCP - General 03/02/17 10/21/24 documented as of this encounter
--- OUTSIDE RECORDS SUMMARY | 2025-07-11 17:14 | XMS_ITS | Encounter Summary ---
Author Organization [facility] Address [address] [place], [place] [phone] Phone Care Team Providers Care Warehouse Unloader Name Role Phone Anabelle Stevens MD Primary Care Provider Reason for Visit * Reason Onset Date Comments Schedule home asthma visit 02/17/2019 Encounter Details Date Type Department Care Team ([facility] st Contact Info) Description 02/17/2019 Patient Outreach [facility] [place] 150 [place] [address] Anabelle Stevens MD 150 [place] [address] Schedule home asthma visit Social History Tobacco [...] on filedocumented in this encounter Care Teams Warehouse Unloader Relationship Specialty Start Date End Date Anabelle Stevens MD [address] [facility] [place] [address] PCP - General 03/02/17 10/21/24 documented as of this encounter
--- OUTSIDE RECORDS SUMMARY | 2025-07-11 17:14 | XMS_ITS | Encounter Summary ---
Author Organization [facility] Address [address] [place], [place] [phone] Phone Care Team Providers Care Sheet Rock Applicator Name Role Phone Anabelle Stevens MD Primary Care Provider Reason for Visit * Reason Onset Date Comments Follow up asthma 04/24/2019 Encounter Details Date Type Department Care Team ([facility] st Contact Info) Description 04/24/[address] [facility] [address] [place] [address] Anabelle Stevens MD 150 [place] [address] Follow up asthma Social History Tobacco Use [...] on filedocumented in this encounter Care Teams Sheet Rock Applicator Relationship Specialty Start Date End Date Anabelle Stevens MD [address] [place] [address] [place] [address] PCP - General 03/02/17 10/21/24 documented as of this encounter
--- OUTSIDE RECORDS SUMMARY | 2025-07-11 17:14 | XMS_ITS | Encounter Summary ---
Author Organization [facility] Address [address] [place] [address] Phone Care Team Providers Care Quiller Machine Fixer Name Role Phone Anabelle Stevens MD Primary Care Provider Encounter Details Date Type Department Care Team (Late st Contact Info) Description 05/23/2012 Documentation [facility] [address] [place] [address] Family Medicine, Physician [address] [place], [place] [id number] Social History Tobacco Use Types Packs/Day Years [...] on filedocumented in this encounter Care Teams Quiller Machine Fixer Relationship Specialty Start Date End Date Anabelle Stevens MD [address] [place] [address] [place] [address] PCP - General 03/02/17 10/21/24 documented as of this encounter
--- OUTSIDE RECORDS SUMMARY | 2025-07-11 17:14 | XMS_ITS | Encounter Summary ---
Author Organization [facility] Address [address] [place] [address] Phone Care Team Providers Care Acetylene Torch Operator Name Role Phone Anabelle Stevens MD Primary Care Provider [phone] Reason for Visit * Reason Comments Med Refill Encounter Details Date Type Department Care Team (Late st Contact Info) Description 05/08/2018 Refill [facility] - [address] [address] Jordan Joseph MD Mild persistent asthma without [...] complication documented in this encounter Care Teams Acetylene Torch Operator Relationship Specialty Start Date End Date Anabelle Stevens MD [address] [place] [address] PCP - General 03/02/17 10/21/24 documented as of this encounter
--- OUTSIDE RECORDS SUMMARY | 2025-07-11 17:14 | XMS_ITS | Encounter Summary ---
Author Organization [facility] Address [address] [place], [place] [phone] Phone Care Team Providers Care Main Line Assembler Name Role Phone Anabelle Stevens MD Primary Care Provider Reason for Visit * Reason Onset Date Comments Follow uo Asthma 07/11/2019 Encounter Details Date Type Department Care Team ([facility] Contact Info) Description 07/11/2019 Patient Outreach [facility] [place] 150 [place] [address] Anabelle Stevens MD 150 [place] [address] Follow uo Asthma Social History Tobacco Use [...] on filedocumented in this encounter Care Teams Main Line Assembler Relationship Specialty Start Date End Date Anabelle Stevens MD [address] [place] [address] [place] [address] PCP - General 03/02/17 10/21/24 documented as of this encounter
--- OUTSIDE RECORDS SUMMARY | 2025-07-11 17:14 | XMS_ITS | Encounter Summary ---
Author Organization [facility] Address [address] [place] [address] Phone Care Team Providers Care Emergency Medicine Nurse Practitioner Name Role Phone Anabelle Stevens MD Primary Care Provider Encounter Details Date Type Department Care Team (Late st Contact Info) Description 03/08/2017 Conversion Encounter [facility] [place] 150 [place] [address] Social History Tobacco Use Types Packs/Day Years [...] on filedocumented in this encounter Care Teams Emergency Medicine Nurse Practitioner Relationship Specialty Start Date End Date Anabelle Stevens MD 150 [place] [address] PCP - General 03/02/17 10/21/24 documented as of this encounter
--- OUTSIDE RECORDS SUMMARY | 2025-07-11 17:14 | XMS_ITS | Encounter Summary ---
Author Organization [facility] Address [address] [place] [address] Phone Care Team Providers Care Nursing Information Systems Coordinator Name Role Phone Anabelle Stevens MD Primary Care Provider [phone] Reason for Visit * Reason Comments Med Change Request Encounter Details Date Type Department Care Team ([facility] st Contact Info) Description 06/05/2022 Refill [facility] [place] 150 [place] [address] Anabelle Stevens MD 150 [place] [address] Mild persistent asthma without complication Social History [...] complication documented in this encounter Care Teams Nursing Information Systems Coordinator Relationship Specialty Start Date End Date Anabelle Stevens MD 150 [facility] [place] [address] PCP - General 03/02/17 10/21/24 documented as of this encounter
--- OUTSIDE RECORDS SUMMARY | 2025-07-11 17:14 | XMS_ITS | Encounter Summary ---
Author Organization [facility] Address [address] [place], [place] [phone] Phone Care Team Providers Care Rn Hedis Name Role Phone Anabelle Stevens MD Primary Care Provider [phone] Reason for Visit * Reason Onset Date Comments Remind Mom of pt's appointment 05/28/2019 Encounter Details Date Type Department Care Team ([facility] Contact Info) Description 05/28/2019 Patient Outreach [facility] [place] 150 [place] [address] Anabelle Stevens MD 150 [place] [address] Remind Mom of pt's appointment Social History [...] on filedocumented in this encounter Care Teams Rn Hedis Relationship Specialty Start Date End Date Anabelle Stevens MD [address] [place] [address] [place] [address] PCP - General 03/02/17 10/21/24 documented as of this encounter
--- OUTSIDE RECORDS SUMMARY | 2025-07-11 17:14 | XMS_ITS | Encounter Summary ---
Author Organization [facility] Address [address] [place], [place] [phone] Phone Care Team Providers Care Explosive Operator Fuse Name Role Phone Anabelle Stevens MD Primary Care Provider Reason for Visit * Reason Onset Date Comments Met at appointment 05/29/2019 Encounter Details Date Type Department Care Team ([facility] st Contact Info) Description 05/29/2019 Patient Outreach [facility] [place] 150 [place] [address] Anabelle Stevens MD 150 [place] [address] Met at appointment Social History Tobacco Use [...] on filedocumented in this encounter Care Teams Explosive Operator Fuse Relationship Specialty Start Date End Date Anabelle Stevens MD [address] [place] [address] [place] [address] PCP - General 03/02/17 10/21/24 documented as of this encounter
--- OUTSIDE RECORDS SUMMARY | 2025-07-11 17:14 | XMS_ITS | Encounter Summary ---
Author Organization [facility] Address [address] [place], [place] [phone] Phone Care Team Providers Care Electronic Health Records Specialist Name Role Phone Anabelle Stevens MD Primary Care Provider [phone] Reason for Visit * Reason Onset Date Comments Follow up Asthma 08/04/2019 Encounter Details Date Type Department Care Team ([facility] st Contact Info) Description 08/04/2019 Patient Outreach [facility] [place] 150 [place] [address] Anabelle Stevens MD 150 [place] [address] Follow up Asthma Social History Tobacco Use [...] on filedocumented in this encounter Care Teams Electronic Health Records Specialist Relationship Specialty Start Date End Date Anabelle Stevens MD 150 [facility] [place] [address] PCP - General 03/02/17 10/21/24 documented as of this encounter
--- OUTSIDE RECORDS SUMMARY | 2025-07-11 17:14 | XMS_ITS | Encounter Summary ---
Author Organization [facility] Address [address] [place] [address] Phone Care Team Providers Care Leadership Recruiter Name Role Phone Anabelle Stevens MD Primary Care Provider Encounter Details Date Type Department Care Team (Late st Contact Info) Description 06/02/2010 Documentation [facility] [address] [place] [address] Family Medicine, Physician [address] [place], [place] [id number] Social History Tobacco Use Types Packs/Day Years [...] on filedocumented in this encounter Care Teams Leadership Recruiter Relationship Specialty Start Date End Date Anabelle Stevens MD [address] [place] [address] [place] [address] PCP - General 03/02/17 10/21/24 documented as of this encounter
--- OUTSIDE RECORDS SUMMARY | 2025-07-11 17:14 | XMS_ITS | Encounter Summary ---
Author Organization [facility] Address [address] [place] [address] Phone Care Team Providers Care Pain Management Physician Name Role Phone Anabelle Stevens MD Primary Care Provider Encounter Details Date Type Department Care Team (Late st Contact Info) Description 11/07/2010 Documentation [facility] Family [facility] [address] [place] [address] Family Medicine, Physician [address] [place], [place] [id number] Social History Tobacco Use Types Packs/Day Years [...] on filedocumented in this encounter Care Teams Pain Management Physician Relationship Specialty Start Date End Date Anabelle Stevens MD [address] [place] [address] [place] [address] PCP - General 03/02/17 10/21/24 documented as of this encounter
--- OUTSIDE RECORDS SUMMARY | 2025-07-11 17:14 | XMS_ITS | Encounter Summary ---
Author Organization [facility] Address [address] [place], [place] [phone] Phone Care Team Providers Care Engineer Exhauster Name Role Phone Anabelle Stevens MD Primary Care Provider [phone] Reason for Visit * Reason Onset Date Comments Schedule home asthma visit 02/04/2019 Encounter Details Date Type Department Care Team ([facility] st Contact Info) Description 02/04/2019 Patient Outreach [facility] [place] 150 [place] [address] Anabelle Stevens MD 150 [place] [address] Schedule home asthma visit Social History Tobacco [...] on filedocumented in this encounter Care Teams Engineer Exhauster Relationship Specialty Start Date End Date Anabelle Stevens MD [address] [place] [address] [place] [address] PCP - General 03/02/17 10/21/24 documented as of this encounter
--- OUTSIDE RECORDS SUMMARY | 2025-07-11 17:14 | XMS_ITS | Clinical Summary ---
Author Organization [facility] Address [address] [place] [address] Phone Care Team Providers Care Personnel Administrator Name Role Phone Unavailable Primary Care Provider [...] Type Department Care Team Description 05/14/2025 Refill [facility] [address] [address] Anabelle Stevens MD Mild persistent asthma with [...]
--- OUTSIDE RECORDS SUMMARY | 2025-07-11 17:14 | XMS_ITS | Encounter Summary ---
Author Organization [facility] Address [address] [place], [place] [phone] Phone Care Team Providers Care Glove Printer Name Role Phone Anabelle Stevens MD Primary Care Provider Reason for Visit * Reason Onset Date Comments Confirm home asthma visit 01/21/2019 Encounter Details Date Type Department Care Team ([facility] st Contact Info) Description 01/21/2019 Patient Outreach [facility] [place] 150 [place] [address] Anabelle Stevens MD 150 [place] [address] Confirm home asthma visit Social History Tobacco [...] on filedocumented in this encounter Care Teams Glove Printer Relationship Specialty Start Date End Date Anabelle Stevens MD [address] [place] [address] [place] [address] PCP - General 03/02/17 10/21/24 documented as of this encounter
[2025-07-11 17:26] VITALS: BP 138/86; PULSE 77; RESP 18; TEMP 36.6; O2SAT 100
== END 2025-07-11 17:26 | disposition home or self-care (01) ==
PROVIDERS: Emergency Provider Emergency Medicine
DX: S63.501A Unspecified sprain of right wrist, initial encounter (principal); J45.909 Unspecified asthma, uncomplicated; V43.92XA Unspecified car occupant injured in collision with other type car in traffic accident, initial encounter; Y93.89 Activity, other specified; Y92.488 Other paved roadways as the place of occurrence of the external cause; Y99.8 Other external cause status
CPT/HCPCS: 73110; 99282; 99283

== ENCOUNTER → 2025-07-11 15:47 | Outpatient (BNV) | payer OTHER, SELFPAY | PROVIDERS: Emergency Provider Emergency Medicine; Visit Provider Radiology Diagnostic Radiology | DX: M25.531 Pain in right wrist (principal); V89.2XXA Person injured in unspecified motor-vehicle accident, traffic, initial encounter | CPT/HCPCS: 73110 ==